=== PATIENT | male | born 1965 | race Caucasian/White ===

== ENCOUNTER 2017-08-21 20:26 | Emergency (ER) | payer SELFPAY ==
--- NOTE | 2017-08-21 21:46 | ED Physician Chart ---
ED Chief Complaint/HPI - Patient Information Date Seen:: 08/21/17 Time Seen:: 21:37 Chief Complaint:: Neck pain History of Present Illness:: 52 yo right handed male had neck pain and right upper extremity pain for 2 months. numbness and tingling, dropping object from right hand. He had chronic neck pain which was worsened by a twisting accident when moving heavy object 2 months ago. The pain fared up today. Allergies:: Allergies Allergy/AdvReac Type Severity Reaction Status Date / Time No Known Allergies Allergy Verified 08/21/17 20:46 Vitals:: Vital Signs - 8 hr 08/21/17 20:30 Temp 97.8 F HR 68 RR 18 BP 132/82 O2 Sat % 97 ED Review of Systems - Review of Systems General/Constitutional: No fever, No chills Skin: No bruising Head: No headache Eyes: No pain ENT: No nasal drainage Neck: Neck pain Cardio Vascular: No chest pain Pulmonary: No SOB, Cough GI: No nausea, No vomiting Musculoskeletal: Back pain Neurological: No syncope, No seizure ED Past Medical History - Past Medical History Past Medical History: Other (Neck pain) Social History: Non Smoker, Alcohol, No Drug Use Surgical History: None Family Medical History - Family Member Mother History Unknown: Yes ED Physical Exam - Physical Examination General/Constitutional: Awake Head: Atraumatic Eyes: PERRL Skin: No ecchymosis ENMT: Nasal exam nl Other Neck comments:: Posterior neck tenderness, with painful and limited ROM, Spurling test positive right side Respiratory: No Wheeze/Rhonchi/Rales Cardio Vascular: RRR, No murmur, gallop, rubs, NL S1 S2 GI: No tenderness/rebounding/guarding Other Extremities comments:: Right upper extremity proximal muscles motor strength 4/5, compared to LUE 5/5 ED Labs/Radiology/EKG Results - Radiology Results Results: C-spine X ray: normal T-spine X ray: normal ED Assessment - Assessment General Assessment: Cervicalgia Cervical radiculopathy, right side Assessment/Comments:: Toradol 30mg IV Solu-Medrol 125mg IV D/c home Gabapentin 300mg tid F/u PCP for possible MRI C-spine ED Septic Shock - . Is Septic Shock (SBP<90, OR Lactate>4 mmol\L) present?: No - <6hrs of presentation: Vital Signs: Vital Signs - 8 hr 08/21/17 20:30 Temp 97.8 F HR 68 RR 18 BP 132/82 O2 Sat % 97 ED Reassessment (Disposition) - Reassessment Reassessment Condition:: Improved ED Discharge Plan - Patient Disposition Admit/Discharge/Transfer: PT DISCHARGED HOME Condition at Disposition: Improved Instructions: Cervical Sprain, [id number] Additional Instructions: FOLLOW UP WITH YOUR DOCTOR IN 2-3 DAYS AND TO COME BACK TO ER IF SYMPTOMS WORSEN
--- NOTE | 2017-08-22 08:30 | Diagnostic Imaging Report ---
Exam: Thoracic spine. HISTORY: Pain Findings: Two views of thoracic spine reviewed. The study demonstrates vertebral bodies of normal height with preserved intervertebral disc spaces. There is no evidence of fracture dislocation subluxation. The lateral view is underexposed. IMPRESSION: Normal examination of thoracic spine.
--- NOTE | 2017-08-22 08:31 | Diagnostic Imaging Report ---
Exam: Cervical spine HISTORY: Pain. Findings: Multiple views of cervical spine reviewed. The study is limited. Odontoid process and lower cervical spine poorly visualized. IMPRESSION: Normal limited examination cervical spine
== END 2017-08-22 00:05 | disposition home or self-care (01) ==
LOC: ER 20:26
DX: M54.2 Cervicalgia (principal); M79.601 Pain in right arm
CPT/HCPCS: 99284; 96374; 96375; 72040; 72072; J1885; J2930; Z7502